=== PATIENT | female | born 1965 | race Caucasian/White ===

== ENCOUNTER 2017-07-29 08:49 | Outpatient (CLI) | payer OTHER ==
--- NOTE | 2017-07-29 11:09 | Ultrasound Report ---
PELVIC ULTRASOUND: 07/29/2017 CLINICAL INDICATION: Postmenopausal bleeding. TECHNIQUE: Transabdominal pelvic ultrasound performed for global evaluation. Transvaginal pelvic ul trasound performed for detailed evaluation. Real-time scanning performed and static images obtained. FINDINGS: The uterus is anteverted, measuring 6.6 x 3.3 x 2.1 cm. The endometrium is atrophic, nii uring 2 mm. No focal myometrial lesion is present. The ovaries are unremarkable, with the right melinda suring 2.0 x 1.6 x 0.9 cm, and the left measuring 1.3 x 1.2 x 0.9 cm. A small amount of free fluid i s seen in cul-de-sac. IMPRESSION: ATROPHIC ENDOMETRIUM. JOB #: [id number] EXT JOB #:[id number]
== END 2017-07-29 08:50 | disposition home or self-care (01) ==
LOC: DI 08:49
PROVIDERS: ATTEND Nurse Practitioner Family
DX: N85.8 Other specified noninflammatory disorders of uterus (principal)
CPT/HCPCS: 76830; 76856

== ENCOUNTER 2018-03-05 18:15 | Emergency (ER) | payer OTHER ==
[2018-03-05] MEDS ORDERED: TETANUS/DIPHTHERIA/PERTUSSIS 0.5 ML SYRINGE IM ONE (18:52)
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
--- NOTE | 2018-03-05 19:57 | CT Report ---
EXAM: CT HEAD EXAM DATE: 03/05/2018 07:26 PM. CLINICAL HISTORY: Fall, head/neck injury. COMPARISON: None. TECHNIQUE: Multiaxial CT images were obtained from the foramen magnum to the vertex. Reformats: Coron al. IV contrast: None. In accordance with CT protocol optimization, one or more of the following dose reduction techniques w ere utilized for this exam: automated exposure control, adjustment of mA and/or KV based on patient s ize, or use of iterative reconstructive technique. FINDINGS: Parenchyma: No intraparenchymal hemorrhage. No evidence of mass, midline shift, or CT findings of inf arction. Rose-white differentiation is distinct. Extraaxial Spaces: Normal for age. No subdural or epidural collections identified. Ventricles: Normal in size and position. Sinuses and Orbits: Imaged paranasal sinuses, orbits, and mastoids show no significant abnormality. Bones: No evidence of fracture or calvarial defect. Other: Frontal scalp hematoma. IMPRESSION: Frontal scalp hematoma. No intracranial abnormality. [facility] Referring Provider Line: [phone] SITE ID: [id number]
--- NOTE | 2018-03-05 20:01 | CT Preliminary Report ---
Exam: CT CERVICAL SPINE W/O IMPRESSION: 1. No acute fracture or dislocation in the cervical spine. 2. Moderate multilevel degenerative changes worse from C5-C7. [facility] SITE ID: [id number]
--- NOTE | 2018-03-05 20:02 | CT Report ---
EXAM: CT CERVICAL SPINE WITHOUT CONTRAST DATE: 03/05/2018 07:25 PM. HISTORY: Fall, head/neck injury. COMPARISONS: None. TECHNIQUE: Thin-section axial images were acquired of the cervical spine without contrast. Post-proce ssing: Coronal and sagittal reformats. Other: None. In accordance with CT protocol optimization, one or more of the following dose reduction techniques w ere utilized for this exam: automated exposure control, adjustment of mA and/or KV based on patient s ize, or use of iterative reconstructive technique. FINDINGS: Alignment: Mild anterolisthesis of C4 and C5, otherwise anatomic alignment. Bones: No fracture or bone lesion. Interspace Levels/Facets: Moderate multilevel degenerative changes with osteophyte formation and inte rvertebral disk space narrowing. Changes are worst from C5-C7. Musculature: Normal. No fatty atrophy. Other: The paravertebral and prevertebral soft tissues are unremarkable. The lung apices are clear. IMPRESSION: 1. No acute fracture or dislocation in the cervical spine. 2. Moderate multilevel degenerative changes worse from C5-C7. [facility] Referring Provider Line: [phone] SITE ID: [id number]
[2018-03-05 20:11] VITALS: BP 137/110
--- NOTE | 2018-03-05 20:28 | XRAY Preliminary Report ---
Exam: XR FINGER(S) LT IMPRESSION: 1. No definite acute abnormality. 2. Nondisplaced fracture at the palmar margin of the base of the middle phalanx is not excluded. Clin ical correlation recommended. [facility] SITE ID: [id number]
--- NOTE | 2018-03-05 20:29 | XRAY Report ---
EXAM: LEFT THIRD DIGIT RADIOGRAPHY EXAM DATE: 03/05/2018 07:29 PM. CLINICAL HISTORY: Left third digit pain after a fall today. LMF inj. COMPARISON: None. TECHNIQUE: 3 views. FINDINGS: Bones: No definite fracture. Very subtle cortical lucency at the palmar margin of the base of the thi rd digit middle phalanx is of questionable significance although a nondisplaced fracture is not exclu ded. Joints: Normal. No subluxations. Soft Tissues: Normal. No soft tissue swelling. IMPRESSION: 1. No definite acute abnormality. 2. Nondisplaced fracture at the palmar margin of the base of the middle phalanx is not excluded. Clin ical correlation recommended. [facility] Referring Provider Line: [phone] SITE ID: [id number]
== END 2018-03-05 20:12 | disposition home or self-care (01) ==
LOC: ED 18:15
DX: R55 Syncope and collapse (principal); S06.0X1A Concussion with loss of consciousness of 30 minutes or less, initial encounter; S63.633A Sprain of interphalangeal joint of left middle finger, initial encounter; S00.81XA Abrasion of other part of head, initial encounter; W18.30XA Fall on same level, unspecified, initial encounter; W22.09XA Striking against other stationary object, initial encounter; Y92.89 Other specified places as the place of occurrence of the external cause; F10.920 Alcohol use, unspecified with intoxication, uncomplicated; R03.0 Elevated blood-pressure reading, without diagnosis of hypertension; Z23 Encounter for immunization
CPT/HCPCS: 70450; 72125; 73140; 90471; 99283; 99284